=== PATIENT | male | born 1965 | race Caucasian/White ===

== ENCOUNTER → 2021-04-26 10:35 | Outpatient (BNVA) | payer OTHER, SELFPAY | PROVIDERS: PCP Nurse Practitioner Family; Visit Provider Nurse Practitioner Family | DX: J98.8 Other specified respiratory disorders (principal); R50.9 Fever, unspecified | CPT/HCPCS: 71046 ==

== ENCOUNTER 2021-05-10 11:09 | Outpatient (CLI) | payer OTHER, SELFPAY ==
[2021-05-10 11:22] VITALS: BMI 29.7
[2021-05-10 11:58] VITALS: BP 161/90; PULSE 93
--- NOTE | 2021-05-10 13:45 | ECG_ITS ---
[facility] Test Date: 2021-05-10 Pat Name: Davis Escalona Department: Room: Gender: Male [employer] Commanding Officer: Malou No : 1965 Requested By: Cristina Shoemaker Order Number: [id number] Zakia MD: Cristina Shoemaker M.D. Interpretive Statements NAME OF STUDY: TREADMILL STRESS TEST INDICATION: Dyspnea, PROCEDURE: At the baseline, the patient's blood pressure was 113/79 with a heart rate of 96/min. The baseline electrocardiogram showed normal sinus rhythm with nonspecific T wave changes. The patient exercised for 6 minutes and 36 seconds on a standard Naresh protocol. Patient attained a maximum heart rate of 150 beats per minute(91% of the maximum predicted heart rate) with a blood pressure at the peak exercise of 206/96 mm Hg. The EKG at the peak exercise revealed no significant changes. Patient did not have any chest pain or any significant cardiac arrhythmias with the exercise During the recovery phase, there were no new changes. Blood pressure at the end of the recovery phase was 140/94 mm Hg with a heart rate of 95 per minute. CONCLUSION: 1. Normal EKG response to treadmill exercise 2. No exercise-induced chest pain or cardiac arrhythmia 3. Hypertensive response to exercise 3. Fair exercise tolerance, attained a maximum of 10.2 METs Electronically Signed On 05-13-2021 0:17:24 [employer]OL[employer] by Cristina Shoemaker M.D. [email or web address]
--- NOTE | 2021-05-10 15:00 | USCV_ITS ---
Davis Escalona Age: 55 Gender: M : 1965 Exam Date: 05/10/2021 12:03 Ordering Phys: Cristina Shoemaker MD ([email or web address]) Technologist: Exam Location: [facility] [place] Indication: CHEST PAIN BP: 136 / 77 HR: 89 Rhythm: Sinus Technical Quality: Adequate MEASUREMENTS (Male / Female) Normal Values 2D ECHO LV Diastolic Diameter PLAX 3.9 cm 4.2 - 5.9 / 3.9 - 5.3 cm LV Systolic Diameter PLAX 2.5 cm IVS Diastolic Thickness 1.3 cm 0.6 - 1.0 / 0.6 - 0.9 cm IVS Systolic Thickness 1.2 cm LVPW Diastolic Thickness 1.3 cm 0.6 - 1.0 / 0.6 - 0.9 cm LVPW Systolic Thickness 1.3 cm LVOT Diameter 2.1 cm LV Ejection Fraction 2D Teich 65.0 % LV Ejection Fraction MOD 2C 69.0 % LV Ejection Fraction 2C AL 68.2 % LA Diameter 3.7 cm LA Width 3.5 cm LA Height 4.8 cm RA Width 3.1 cm RA Height 4.0 cm M-MODE Aortic Annulus Diameter 3.9 cm LA Ao Ratio MM 1.1 MV E Point Septal Separation 1.1 cm DOPPLER AV Peak Velocity 136.0 cm/s LVOT Peak Velocity 123.0 cm/s AV Area Cont Eq vti 3.3 cm squared AV Area Cont Eq pk 3.0 cm squared MV Area PHT 2.2 cm squared Mitral E to A Ratio 0.8 MV E' Velocity 39.5 cm/s Mitral E to MV E' Ratio 9.3 Mitral E to LV E' Lateral Ratio 7.2 Mitral E to LV E' Septal Ratio 13.2 TR Peak Velocity 145.0 cm/s TR Peak Gradient 8.4 mmHg TV Peak E Velocity 52.0 cm/s Right Atrial Pressure 3.0 mmHg Pulmonary Artery Systolic Pressu 11.4 mmHg FINDINGS Left Ventricle Normal left ventricular size and systolic function, EF 68 %. No regional wall motion abnormalities. Mild left ventricular hypertrophy. Grade I/IV diastolic dysfunction (abnormal relaxation filling pattern), normal to mildly elevated filling pressures. Right Ventricle The right ventricle is normal in size and function. Right Atrium The right atrium is normal in size. Left Atrium The left atrium is normal in size. Mitral Valve Mild mitral annular calcification. Aortic Valve Thickened aortic valve. Tricuspid Valve Trace tricuspid valve regurgitation. Pulmonic Valve No gross abnormalities noted Pericardium Normal pericardium without effusion. Aorta Normal ascending aorta dimension. CONCLUSIONS Normal left ventricular size and systolic function, EF 68 %. No regional wall motion abnormalities. Mild left ventricular hypertrophy. Grade I/IV diastolic dysfunction (abnormal relaxation filling pattern), normal to mildly elevated filling pressures. Minimally thickened aortic and mitral valves Trace tricuspid valve regurgitation. No previous study is available for comparison. Dr Cristina Shoemaker MD FACC (Electronically Signed) Final Date: 10 May 2021 20:46 S
== END 2021-05-10 11:10 | disposition home or self-care (01) ==
LOC: CDL 11:16
PROVIDERS: PCP Nurse Practitioner Family; Visit Provider Internal Medicine Cardiovascular Disease
DX: R06.00 Dyspnea, unspecified (principal); R07.9 Chest pain, unspecified; I08.3 Combined rheumatic disorders of mitral, aortic and tricuspid valves; R06.02 Shortness of breath
CPT/HCPCS: 93017; 93306